=== PATIENT | female | born 1970 | race Caucasian/White ===

== ENCOUNTER 2023-02-14 12:16 | Outpatient (CLI) | payer MEDICARE ==
[2023-02-14 14:03] LABS: #Monocytes 0.3 10x3/uL (0.0-1.1); #Neutrophils 1.3 10x3/uL (1.5-8.4); %Basophils 0.6 % (0.0-2.0); %Eosinophils 0.9 % (0.0-6.0); %Lymphocytes 47.7 % (18.0-47.0); %Monocytes 9.3 % (0.0-10.0); %Neutrophils 40.6 % (40.0-75.0); Hematocrit 38.1 % (34.9-44.5); Mean Corpuscular HGB CONC 34.1 g/dL (32.0-36.0); Mean Corpuscular Hemoglobin 31.6 pg (27.0-33.0); Mean Corpuscular Volume 92.5 fl (81.6-98.3); Mean Platelet Volume 10.1 fl (7.4-10.4); Platelet Count 120 10x3/uL (150-450); RBC Distribution Width 12.2 % (11.5-14.5); Red Blood Cell (RBC) Count 4.12 10x6/uL (3.90-5.03); White Blood Cell (WBC) Count 3.2 10x3/uL (3.5-10.5)
[2023-02-14 14:31] LABS: Anion Gap 12 mmol/L (10-20); BUN (Urea Nitrogen) 10 mg/dL (9.8-20.1); Calc. Creatinine Clearance 0 mL/min (70-130); Calcium 9.1 mg/dL (7.8-10.44); Carbon Dioxide 26 mmol/L (22-29); Chloride 107 mmol/L (98-107); Estimated GFR 85; Glucose 87 mg/dL (70-105); Potassium 4.1 mmol/L (3.5-5.1); Sodium 141 mmol/L (136-145)
== END 2023-02-14 12:17 | disposition home or self-care (01) ==
LOC: LABBT 12:16
PROVIDERS: ATTEND Specialist
DX: Z01.812 Encounter for preprocedural laboratory examination (principal); C50.911 Malignant neoplasm of unspecified site of right female breast
CPT/HCPCS: 80048; 85025

== ENCOUNTER 2023-02-20 07:26 | Day surgery (SDC) | payer MEDICARE ==
[2023-02-14 12:51] VITALS: BMI 33.2
[2023-02-20] MEDS ORDERED: Ketorolac Tromethamine 30 MG/ML VIAL ONE (09:14)
[2023-02-20] MEDS ORDERED: Acetaminophen 500 MG TAB ONE (09:15)
[2023-02-20] MEDS ORDERED: EPINEPHrine 1 MG/ML VIAL ONE (12:24)
[2023-02-20] MEDS ORDERED: Bupivacaine 0.25% HCL 30 ML VIAL ONE (12:24)
[2023-02-20] MEDS ORDERED: Isosulfan Blue 50 MG/5 ML VIAL ONE (12:24)
[2023-02-20] MEDS ORDERED: Lidocaine 2% PF 5 ML VIAL ONE (12:24)
[2023-02-20] MEDS ORDERED: Lidocaine 1% PF 5 ML VIAL ONE ×2 (12:27→13:01)
[2023-02-20] MEDS ORDERED: fentaNYL 50 mcg/mL 1 mL Vial ONE (12:27)
[2023-02-20] MEDS ORDERED: PROPOFOL 20 ML ONE (12:27)
[2023-02-20] MEDS ORDERED: CEFAZOLIN 2 GM VIAL ONE (12:42)
[2023-02-20] MEDS ORDERED: Sodium Chloride 0.9% 100 ML ONE (12:42)
[2023-02-20] MEDS ORDERED: Dexamethasone 20 MG/5 ML VIAL ONE ×2 (13:01→13:05)
[2023-02-20] MEDS ORDERED: PROPOFOL 200 MG/20 ML VIAL ONE (13:01)
[2023-02-20] MEDS ORDERED: Ondansetron PF 4 MG/2 ML Vial ONE ×2 (13:01→14:15)
== END 2023-02-20 16:23 | disposition home or self-care (01) ==
LOC: SDC 07:26
PROVIDERS: ATTEND Specialist
PROC: 0HBT0ZZ Excision of Right Breast, Open Approach (ICD-10-PCS; principal; 2023-02-20)
DX: C50.811 Malignant neoplasm of overlapping sites of right female breast (principal); E78.00 Pure hypercholesterolemia, unspecified; F32.A Depression, unspecified; G43.909 Migraine, unspecified, not intractable, without status migrainosus; E03.9 Hypothyroidism, unspecified; Z79.890 Hormone replacement therapy; Z98.890 Other specified postprocedural states; Z79.899 Other long term (current) drug therapy; Z90.710 Acquired absence of both cervix and uterus; Z88.8 Allergy status to other drugs, medicaments and biological substances
CPT/HCPCS: 19301; 38525; 38900; 76098; 78195; A9541; J0171; J3010; Q9968; 88307; 88342; J1100; J1885; J2001; J2405; J2704; J3490; S0020